=== PATIENT | male | born 1955 | race Caucasian/White ===

== ENCOUNTER 2021-06-15 15:39 | Emergency (ER) | payer MEDICARE, SELFPAY ==
[2021-06-15 16:20] VITALS: BP 148/82; PULSE 68; RESP 16; TEMP 35.8; O2SAT 97
--- NOTE | 2021-06-15 17:02 | ED.SKABFB ---
HPI - Skin/Abscess/Foreign Bdy General Chief complaint: Skin/Abscess/Foreign Body Stated complaint: insect bite Time Seen by Provider: 06/15/21 17:04 Source: patient and RN notes reviewed Mode of arrival: ambulatory Limitations: no limitations History of Present Illness HPI narrative: 65 year old male presents to express care with complaints of possible insect bite to the lateral aspect of his dorsal right foot with surrounding 3cm area of redness with itching which has been there for the past 2-3 days with increase in redness noted today. Patient states that he has been applying some OTC cream he got at the store with no improvement, He reports no known fevers, chills or sweats. Related Data Allergies Allergy/AdvReac Type Severity Reaction Status Date / Time No Known Allergies Allergy Mild Verified 06/15/21 16:28 Review of Systems Review of Systems: CONSTITUTIONAL: Denies fever, chills, or sweats. EYES: Denies visual changes, redness, or discharge. ENT: Denies rhinorrhea, congestion, sore throat, or otalgia. CARDIOVASCULAR: Denies chest pain, palpitations, or edema. RESPIRATORY: Denies cough or dyspnea. GASTROINTESTINAL: Denies abdominal pain, nausea, vomiting, or diarrhea. GENITOURINARY: Denies dysuria or hematuria. SKIN: Positive for possible insect bite to right lateral dorsal foot with surrounding redness and itching. MUSCULOSKELETAL: Denies back pain, joint pain, or myalgia. NEUROLOGIC: Denies headache, numbness, or weakness. PSYCHIATRIC: Denies anxiety or depression. All systems reviewed & are unremarkable except as noted in HPI and below PMFSH Past Medical History Medical History (Updated 06/21/21 @ 21:57 by Mini Onofre NP) Hypertension Screening PSA (prostate specific antigen) Surgical History Surgical History (Updated 06/21/21 @ 21:58 by Mini Onofre NP) No history of previous surgery Family History Family History Mother Family history of diabetes mellitus in first degree relative Social History Social History (Updated 06/21/21 @ 21:57 by Mini Onofre NP) Smoking packs per day: 1 Smoking cigarettes per day: 20.0 Years smoked: 30 Smoking pack-years: 30.00 Smoking status: Current every day smoker Alcohol intake: current Substance use: never Gender identity (if verbalized by the patient): Male Comments At time of signature, agree with nursing past medical, surgical, social and family history. There is no relevant family history pertinent to the presenting complaint Exam Narrative: GENERAL: Well-appearing, well-nourished, and in no acute distress. HEAD: Normocephalic, atraumatic. EYES: PERRLA and EOMI. ENT: Nares clear, no rhinorrhea or epistaxis. Mucous membranes moist.TM's normal, Throat with no redness or exudates or lesions, no tonsil enlargement. NECK: Supple.no lymphadenopathy CHEST: Clear to auscultation. No respiratory distress.SAO2 97% on room air HEART: Regular rate and rhythm. No murmur heard. Normal peripheral pulses. ABDOMEN: Soft, nontender, nondistended, normal active bowel sounds. EXTREMITIES: Normal range of motion. No edema. SKIN: Warm, dry, insect bite type of lesion to lateral right foot with 3cm surrounding redness with no induration of skin, patient reports no pain states itching to skin. NEURO: No focal deficits. Alert and oriented x3. Course Vital Signs Vital signs: Vital Signs Temperature 35.8 C L 06/15/21 16:20 Pulse Rate 68 06/15/21 16:20 Respiratory Rate 16 06/15/21 16:20 Blood Pressure 148/82 H 06/15/21 16:20 Pulse Oximetry 97 06/15/21 16:20 Temperature 35.8 C L 06/15/21 16:20 Pulse Rate 68 06/15/21 16:20 Respiratory Rate 16 06/15/21 16:20 Blood Pressure 148/82 H 06/15/21 16:20 Pulse Oximetry 97 06/15/21 16:20 MDM - Skin/Abscess/Foreign Bdy Differential Diagnosis Differential diagnosis: Likely abscess of skin or subcutaneous tissue, insect
== END 2021-06-15 17:28 | disposition home or self-care (01) ==
PROVIDERS: Emergency Provider Registered Nurse; PCP Emergency Medicine
DX: L02.611 Cutaneous abscess of right foot (principal); F17.200 Nicotine dependence, unspecified, uncomplicated; I10 Essential (primary) hypertension
CPT/HCPCS: 99213; G0463

== ENCOUNTER 2023-12-26 12:36 | Emergency (ER) | payer MEDICARE, SELFPAY ==
--- NOTE | ~2023-12-26 | XR_ITS ---
EXAMINATION: XR chest 2V 12/26/2023 13:20 INDICATION: Chest pain and shortness of breath PROCEDURE: 2 view chest COMPARISON: No prior studies for comparison. FINDINGS: The lungs are clear. The cardiomediastinal silhouette is within normal limits. There are no pleural effusions. There is no pneumothorax suspected. IMPRESSION: 1: NO ACUTE CARDIOPULMONARY DISEASE. Reviewed, dictated and finalized at location A.
--- NOTE | ~2023-12-26 | CT_ITS ---
EXAMINATION: CT abdomen pelvis w con DATE: 12/26/2023 13:38 INDICATION: Left lower quadrant pain TECHNIQUE: Computed tomography (CT) of the abdomen and pelvis was performed with 100 cc Omnipaque 350 intravenous contrast. The dose-length product was 776.92 mGy-cm. Automated exposure control and iter ative reconstruction technique were employed. COMPARISON: None. FINDINGS: Lung bases unremarkable. Heart size upper normal. No significant pleural or pericardial eff usion. There is atherosclerosis of the aorta without aneurysm. Small fat-containing umbilical hernia containing fat. No lymphadenopathy. Study limited by motion. The liver contains a 3 cm cyst of the right hepatic lobe inferiorly. Gallbla dder is present. The spleen, pancreas, adrenal glands and kidneys are unremarkable. Gallbladder is co ntracted. Nonobstructive bowel gas pattern. Colonic diverticulosis without evidence for diverticuliti s. No free air or free fluid. Normal appendix. Moderate lumbar spondylosis. IMPRESSION: 1. No acute abdominal abnormality. Reviewed, dictated and finalized at location A.
[2023-12-26 12:37] VITALS: BP 166/79; PULSE 64; RESP 20; TEMP 36.5; O2SAT 100
--- NOTE | 2023-12-26 12:44 | ECG_ITS ---
Measurements Intervals Frost Rate: 70 P: 30 NJ: 166 QRS: 36 QRSD: 93 T: 63 QT: 390 QTc: 421 Interpretive Statements SINUS RHYTHM ATRIAL PREMATURE COMPLEX BASELINE ARTIFACT- I, II, III, AVR, AVL, AVF BORDERLINE ECG NO PREVIOUS ECG AVAILABLE FOR COMPARISON Electronically Signed On 12-26-2023 13:38:11 CDT by Omari Chow D.O.
[2023-12-26 12:57] VITALS: PULSE 69; O2SAT 100
[2023-12-26 13:13] LABS: Basophils Percent Auto 0.2 % (0.2-1.2); Eosinophils Absolute Auto 0.1 K/mm3 (0-0.3); Eosinophils Percent Auto 1.2 % (0-4.4); Hematocrit 46.4 % (42.0-52.0); Hemoglobin 15.5 g/dL (14.0-18.0); Immature Granulocyte Absolute 0.03 K/mm3 (0.00-0.031); Immature Granulocyte Percent A 0.4 % (0-0.5); Lymphocytes Absolute Auto 1.96 K/mm3 (0.9-3.2); Lymphocytes Percent Auto 23.8 % (18.3-44.2); Mean Corpuscular HGB Conc 33.4 g/dl (32-36); Mean Corpuscular Hemoglobin 32.2 pg (26-34); Mean Corpuscular Volume 96.3 fl (80-100); Mean Platelet Volume 9.6 fl (7.4-10.4); Monocytes Absolute Auto 0.7 K/mm3 (0.1-0.6); Monocytes Percent Auto 8.9 % (2.6-8.5); Neutrophils Absolute Auto 5.4 K/mm3 (1.3-6.7); Neutrophils Percent Auto 65.5 % (45.5-73.1); Platelet Count Result 220 k/mm3 (150-375); Red Blood Count 4.82 M/mm3 (4.6-6.20); Red Cell Distribution Width 13.9 % (11.5-14.5); White Blood Count 8.2 K/mm3 (4.5-10.0)
[2023-12-26] MEDS: ASPIRIN 81 MG CHEWABLE TABLET 324 MG PO (13:21)
[2023-12-26 13:24] LABS: Alanine Aminotransferase 38 U/L (6-50); Albumin Level 4.5 g/dL (3.5-5.1); Alkaline Phosphatase 69 U/L (38-126); Anion Gap 3 mmol/L (8-16); Aspartate Amino Transferase 29 U/L (17-59); Bilirubin,Total 1.1 mg/dL (0.2-1.3); Blood Urea Nitrogen 15 mg/dL (9-20); Carbon Dioxide 30 mmol/L (22-30); Chloride 104 mmol/L (98-107); Estimated CRCL calculation 103 ml/min; Estimated Glomerular Filt Rate > 60; Glucose 106 mg/dL (65-110); Lipase 135 U/L (23-300); Potassium 3.9 mmol/L (3.4-5.0); Sodium 137 mmol/L (137-145)
[2023-12-26 13:27] LABS: INR 0.9; Prothrombin Time 12.6 Seconds (11.1-14.7)
[2023-12-26 13:28] LABS: Partial Thromboplastin Time 28.5 Seconds (22.3-36.8)
[2023-12-26 13:35] LABS: Troponin I < 0.012 ng/mL (0.000-0.034)
[2023-12-26 13:57] VITALS: BP 176/83; PULSE 67; RESP 20; O2SAT 99
[2023-12-26 14:58] VITALS: BP 185/93; PULSE 64; RESP 18; O2SAT 100
--- NOTE | 2023-12-26 14:58 | ED.CHESTPAIN ---
HPI - Chest Pain General Chief Complaint: Chest Pain Stated Complaint: chest pain, tremors, SOB Time Seen by Provider: 12/26/23 12:51 Source: patient and family Mode of arrival: ambulatory Limitations: no limitations History of Present Illness HPI narrative: 68-year-old with a history of hypertension, smoking, hypercholesteremia here with complaints of chest pain which is been ongoing for several months he also stated that he has left lower abdominal pain which has been ongoing as well. He denies any shortness of breath has smoker's cough. No history of fever or chills no previous history of CAD. Denies any blood in the stool, at times he feels constipated complaint: chest pain Onset (ago): month(s) Timing of current episode: constant Prior episodes: No Pain radiation: none Quality: aching Relieving factors: nothing Exacerbating factors: nothing Treatment prior to arrival: none Risk Factors Coronary artery disease risk factors: none Related Data Allergies Allergy/AdvReac Type Severity Reaction Status Date / Time No Known Allergies Allergy Mild Verified 10/14/23 15:22 Review of Systems Review of Systems: All systems reviewed & are unremarkable except as noted in HPI and below Constitutional: Constitutional: Reports no additional constitutional complaints Eyes: Eyes: Reports no additional eye complaints ENT: Reports system reviewed and no additional complaints, except as documented Cardiovascular: Cardiovascular: Reports as per HPI and Reports no additional cardiovascular complaints Respiratory: Respiratory: Reports no additional respiratory complaints Gastrointestinal: Gastrointestinal: Reports no additional gastrointestinal complaints Musculoskeletal: Musculoskeletal: Reports no additional musculoskeletal complaints Integumentary/Breasts: Skin/Breast: Reports system reviewed and no additional complaints, except as docu Neurologic: Reports system reviewed and no additional complaints, except as documented Endocrine: Endocrine: Reports no additional endocrine complaints Hematologic/Lymphatic: Hematologic/Lymphatic: Reports no additional hematologic/lymphatic complaints [facility] Past Medical History Medical History Hypertension Screening PSA (prostate specific antigen) Surgical History Surgical History No history of previous surgery Family History Family History Mother Family history of diabetes mellitus in first degree relative Social History Social History Smoking packs per day: 1 Smoking cigarettes per day: 20.0 Years smoked: 30 Smoking pack-years: 30.00 Smoking status: Current every day smoker Alcohol intake: current Substance use: never Gender identity (if verbalized by the patient): Male Exam Narrative: GENERAL: Well-appearing, well-nourished, and in no acute distress. HEAD: Normocephalic, atraumatic. EYES: PERRLA and EOMI. ENT: Nares clear, no rhinorrhea or epistaxis. Mucous membranes moist. NECK: Supple. CHEST: Clear to auscultation. No respiratory distress. HEART: Regular rate and rhythm. No murmur heard. Normal peripheral pulses. ABDOMEN: Soft, nontender, nondistended, normal active bowel sounds. EXTREMITIES: Normal range of motion. No edema. SKIN: Warm, dry, no rash. NEURO: No focal deficits. Alert and oriented x3. PSYCH: Normal mood and affect. Course Course Emergency Course: Notified patient and his son about the lab work, CT, EKG urine, chest x-ray findings recommended him to follow up with his primary doctor for further workup may need stress test and colonoscopy no later date. He does feel comfortable going home. Vital Signs Vital signs: Vital Signs Temperature 36.5 C 12/26/23 12:37 Pulse Rate 64 12/26/23 12:37 Respiratory Rate
[2023-12-26 15:42] LABS: Troponin I < 0.012 ng/mL (0.000-0.034)
== END 2023-12-26 16:20 | disposition home or self-care (01) ==
PROVIDERS: Emergency Provider Family Medicine; PCP Emergency Medicine
DX: R07.9 Chest pain, unspecified (principal); I10 Essential (primary) hypertension; E78.00 Pure hypercholesterolemia, unspecified; F17.210 Nicotine dependence, cigarettes, uncomplicated; I49.1 Atrial premature depolarization
CPT/HCPCS: 36415; 71046; 74177; 80053; 83690; 84484; 85025; 85610; 85730; 93005; 99284; A9270; Q9967